=== PATIENT | female | born 1990 | race Two or more races ===

== ENCOUNTER 2020-01-14 09:20 | Emergency (ER) | payer MEDICAID, OTHER ==
[~2020-01-14] VITALS: Ht 162.6 cm; Wt 104.3 kg
[2020-01-14 12:41] VITALS: BP 144/94
== END 2020-01-14 12:47 | disposition home or self-care (01) ==
LOC: ER 09:20
DX: U07.1 COVID-19 (principal); J12.89 Other viral pneumonia; F41.9 Anxiety disorder, unspecified
CPT/HCPCS: 36415; 71045; 87426

== ENCOUNTER 2020-01-27 16:20 | Emergency (ER) | payer MEDICAID ==
[~2020-01-27] VITALS: Ht 165.1 cm; Wt 104.3 kg
[2020-01-27 16:44] VITALS: BP 138/80
[2020-01-27] MEDS ORDERED: cefTRIAXone SOD 1,000 MG VL IM ONE (17:30)
== END 2020-01-27 18:37 | disposition home or self-care (01) ==
LOC: ER 16:20
DX: U07.1 COVID-19 (principal); J18.9 Pneumonia, unspecified organism
CPT/HCPCS: 71045; 96372; 99283; J0696